=== PATIENT | male | born 1940 | race Caucasian/White ===

== ENCOUNTER 2017-04-19 10:15 | Outpatient (CLI) | payer OTHER ==
[~2017-04-19] VITALS: Ht 170.2 cm; Wt 71.4 kg
[2017-04-19 10:28] VITALS: BP 134/65; PULSE 95; RESP 18; Ht 170.2 cm; Wt 71.4 kg
[2017-04-19] MEDS ORDERED: IPRA12.93 INHALATION (10:38)
[2017-04-19] MEDS ORDERED: ADV10050 INHALATION (10:38)
[2017-04-19] MEDS ORDERED: ALBU18HF INHALATION (10:38)
[2017-04-19] MEDS ORDERED: TAMS-14 PO (10:38)
[2017-04-19] MEDS ORDERED: LOSA50TA6 PO (10:38)
[2017-04-19] MEDS ORDERED: GLEC1TAB PO (10:38)
--- NOTE | 2017-04-19 14:04 | CONS ---
DATE OF ADMISSION: 04/19/2017 DATE OF CONSULTATION: 04/19/2017 [facility] INITIAL OUTPATIENT CONSULTATION NOTE PLACE OF SERVICE: [facility] at [facility] REFERRING PHYSICIAN: Jessica Tenorio MD Dear Dr. Tenorio: Thank you very much for the opportunity to participate in the care of this very pleasant gentleman a nd his wonderful family. REASON FOR CONSULTATION: Hepatocellular carcinoma. HISTORY OF PRESENT ILLNESS: The patient is a very pleasant and otherwise fairly healthy 76-year-old gentleman with a few comorbidities including BMI 24.6 who was recently diagnosed with hepatitis C v irus infection. As part of his workup, he underwent an ultrasound of the abdomen on 01/27/2017 at [facility] read by Dr. Gabbi Royal, which demonstrated the presence of a 5.5 cm mass within the left hepatic lobe, highly suspicious for hepatocellular carcinoma in the setting of hepa titis and cirrhosis. The liver was thought to be nodular suggestive of sequelae of cirrhosis. The followup image was an MRI of the abdomen with and without contrast on 02/20/2017 at [facility] and read by Dr. Néstor Mcgraw that demonstrated a large 7 cm mass occupying the right lobe of the liver consistent with hepatocellular carcinoma LIRADS category 5B. No radiologic evidence of definite macrovascular involvement or extrahepatic disease in the visualized portion of the abdomen . He had the additional procedure of CT-guided liver biopsy on 03/05/2017 at [facility], [facility], done by Dr. Lewis Giron where a CT -guided biopsy was performed of the right hepatic mass which on final pathology is found to be a wel l differentiated hepatocellular carcinoma in the setting of cirrhosis with marked bile duct prolifer ation and focal ectasia. Note that there is no mention of grade of fibrosis. In addition to above, the patient also underwent a PET CT scan on 03/22/2017 done at [facility] of [facility], read by Dr. Callum Giron of which demonstrated a subtle ill-defined isometabolic hypodensity within the liver compatible with known malignancy. The area showed minimal or no FDG avidity. There was left lung base focal consolidation versus atelectasis and short-term followup was suggested. A right renal cyst was noted. Enlarged prostate was also noted and no abno rmal tracer uptake elsewhere to suggest metastatic disease. The patient's laboratory values up to now have been significant for rising alpha fetoprotein levels which were read at 8.2 on 02/13/2017 with repeat values done on 03/25/2017 at 12.1. Note that his a lbumin is 3.9, his platelet count is 218, total bilirubin was 1.5, AST 203, ALT 186, alkaline phosph atase 236. INR 1.0. Hepatitis C genotype 4 on 02/13/2017. He was started on Nexavar for 10 days an d he has had a rather moderate to severe complication of skin necrosis on his feet as well as on his scrotum. The patient himself reported no major symptoms of abdominal pain and no issues with nausea or vomiti ng, no difficulties with diarrhea or constipation or bleeding per rectum or vomiting blood in the pa st. He has had no known difficulties with his liver or biliary system in the past. The diagnosis o f liver issues were all new to him and his family starting summer. The patient reports appr oximately a 10 to 20 pound weight loss over the last few weeks. He did not tolerate sorafenib very well with the above-mentioned complications. No other major symptoms during my visit. COMORBIDITIES: 1. BMI 24.6. 2. Hepatitis C virus infection, genotype 4 diagnosed 12/2016 with no known treatment specific for i t. 3. Hepatocellular carcinoma diagnosed 01/2017 with above-mentioned ultrasound and confirmed with fu rther images and biopsy as outlined above. 4. Hypertension. 5. Asthma. 6. Chronic obstructive pulmonary disease. 7. Syphilis 01/01/2017. SOCIAL HISTORY: The patient lives with his family. He has 5 children. Currently retired. No uche r issues with smoking, drinking, or intravenous drug use. FAMILY HISTORY: One son has osteosarcoma, there is also diabetes mellitus in the family and hyperte nsion. No other mention of major medical, surgical or oncologic problems in the family. REVIEW OF SYSTEMS: Other than the above-mentioned, there are no other major pertinent positives or pertinent negatives in a complete 14-point review of systems. The patient has minor bloating report ed. PHYSICAL EXAMINATION: GENERAL: The patient appears to be a very pleasant -Scottish gentleman of non- desce nt, appearing stated age or perhaps younger than stated age, sitting in a chair comfortably and in n o acute distress. His BMI is 24.6. VITAL SIGNS: Normal with the exception of slightly high blood pressure 134/65. HEENT: Head is normocephalic and atraumatic. His extraocular muscles and hearing are grossly intac t bilaterally and symmetrically. His sclerae are nonicteric. His oral cavity is clear, and his ora l mucosa appear to be pink and moist. His dentition is fair. NECK: Supple. There is no lymphadenopathy or JVD. CHEST: Rises symmetrically with each breath, and he is breathing comfortably, without any gross edvin dence for wheezing, rales or rhonchi. His carotid pulses are palpable bilaterally and symmetrically in his neck. HEART: Radial pulses palpable on his right wrist. Lower extremities contain no pitting edema aroun d the ankles bilaterally and symmetrically. ABDOMEN: Soft, slightly protuberant but nondistended and nontender. There is a small umbilical her mary jane which is easily reduced and nontender to palpation. There is no evidence of organomegaly, caput medusae, engorged subcutaneous veins, or ascites. There are no peritoneal signs or guarding. EXTREMITIES: Skin appears to be pink and feels warm to touch. Skin overlying the dorsum of the lef t foot contains an area of necrosis and the patient is wearing sandals and walks very slowly due to moderate pain in the feet. NEUROLOGIC: He is awake, alert, and follows commands appropriately. LABORATORY VALUES: As above. IMAGING: As above. Note that I personally reviewed all the available images and I agree in general with their overall reported findings with the exception of the following: The mass appears to be o ccupying a space that involves segment 8, 4A, 4B and part of segment 5. It is directly overlying the bifurcation of the portal structures and there is no evidence of obviou s thrombus within portal vein on either side. The main portal vein appears to be open. The appeara nce of the contour of the liver do not suggest severe cirrhosis. There is no evidence of splenomega ly or ascites or varices. IMPRESSION AND PLAN: A very pleasant but unfortunate 76-year-old gentleman with a few comorbidities , presenting with newly diagnosed hepatitis C in the summer of 2017 and a diagnosis of 7 cm mass wit hin the central portion of the liver occupying portions of segments 8, 4A, 4B and 5. This lesion is borderline resectable. The patient's liver appearance as well as his images suggest a candidate fo r surgical exploration. The biopsy confirms a diagnosis of hepatocellular carcinoma and the images have characteristic findings for hepatocellular carcinoma. I do not believe that this is metastatic disease from elsewhere and the other differentials include cholangiocarcinoma, as well as other typ es of primary liver malignancy. The options of treatment are multiple. I spent quite a bit of time with the patient and his daughter, who is a pharmacist, and reviewed all our available information in detail with the help of printed diagrams as well as a model of liver reviewing the findings up to now, and the different strategies to treat this problem. Surgical resection with R0 margins (negat sunita margins), would like to give the patient the most benefit. However, as I mentioned, I believe t hat the lesion is borderline resectable, given its size and location with concern for involvement of the bifurcation reducing our chances of performing an R0 resection. Patient also currently is not eligible for a liver transplant within [facility] criteria, although he can be considered within the UCS F criteria and therefore, a local therapy to the liver, to reduce the size might make him more eligi ble for a transplant. Incidentally, this would also make him more eligible for a surgical resection . The pathology report mentions cirrhosis as well as the ultrasound report. However, the patient d oes not have the type of images to support severe cirrhosis and certainly his laboratory values are permissible and therefore, surgical exploration can be considered. I reviewed local therapies to th e liver in the form of transarterial chemoembolization, radioembolization, and also heat therapy suc h as radiofrequency ablation or microwave ablation and reviewed the risks, benefits of each in detai l. We also reviewed the systemic chemotherapy with sorafenib and the risks and benefits of this christopher atment. Patient already is showing moderate to severe complications from sorafenib and I do not bel ieve that he will be able to tolerate any further therapies. Furthermore, the known benefits of sor afenib are somewhat limited with average of 8 weeks of survival advantage at the cost of weeks to mo nths of severe complications as the patient is experiencing and for this reason, I do not recommend further systemic chemotherapy in this situation. I spent quite a bit of time with the patient and family reviewing all of the above and answered all their questions. The patient and his daughter appeared to understand and agreed with the following plans. With above assessments, I have recommended the followin. Multidisciplinary Tumor Board presentation. 2. Request authorization for both surgical intervention as well as local intervention with transart erial chemoembolization with the decision to be made after expedited multidisciplinary tumor board p resentation above in the next few weeks. 3. It would be certainly reasonable to explore the patient laparoscopically with the plan of doing intraoperative ultrasound of the liver and if the patient appears to be a resectable candidate to co ntinue with either a right trisegmentectomy versus a central hepatectomy versus Aalp's procedure. 4. Alternatively, if the recommendation of the tumor board is to proceed with local therapy or if t he intraoperative findings suggested borderline resectable then transarterial chemoembolization vers us radioembolization could be attempted in an attempt to make the patient a better surgical candidat e. 2. Transplant evaluation. 3. Possible need for consideration for combination therapy. 4. Follow up with us in early May for making the finalized plans while we arrange for all the cinda aguilera. Thank you again for allowing us to participate in the care of this very pleasant gentleman and his w onderful family. If there are any questions, please feel free to contact me at [phone]. NATURE OF PRESENTING PROBLEM: High risk. COMPLEX OF DECISION MAKING: High complexity. Dictated By: EMIR ACEVEDO/NICOLASA Conf#: [id number] DID#: [id number] CC: Toi Wynne; Yudith Oliveira; Jessica Tenorio;*EndCC*
== END 2017-04-19 17:00 | disposition home or self-care (01) ==
LOC: HPC 10:15
PROVIDERS: ATTEND Transplant Surgery
DX: C22.0 Liver cell carcinoma (principal); K74.60 Unspecified cirrhosis of liver; B19.20 Unspecified viral hepatitis C without hepatic coma; I10 Essential (primary) hypertension; J44.9 Chronic obstructive pulmonary disease, unspecified; Z86.19 Personal history of other infectious and parasitic diseases; Z83.3 Family history of diabetes mellitus; Z82.49 Family history of ischemic heart disease and other diseases of the circulatory system
CPT/HCPCS: G0463

== ENCOUNTER 2017-05-19 15:44 | Outpatient (CLI) | END 2017-05-19 17:00 | disposition home or self-care (01) ==

== ENCOUNTER → 2017-05-21 | Outpatient (CLI) | END | disposition home or self-care (01) ==

== ENCOUNTER 2017-05-31 11:00 | Outpatient (CLI) | END 2017-05-31 16:43 | disposition home or self-care (01) ==

== ENCOUNTER 2017-07-07 09:52 | Outpatient (CLI) | END 2017-07-07 15:42 | disposition home or self-care (01) ==

== ENCOUNTER 2017-09-10 21:57 | Observation (INO) | END 2017-09-12 12:30 | disposition home or self-care (01) ==

== ENCOUNTER 2017-10-08 22:33 | Inpatient (IN) | END 2017-10-14 17:06 | disposition home health service (06) | DRG 435 ==

== ENCOUNTER 2017-10-19 14:14 | Outpatient (CLI) | END 2017-10-19 16:32 | disposition home or self-care (01) ==

== ENCOUNTER 2017-10-22 13:58 | Outpatient (CLI) | END 2017-10-22 16:05 | disposition home or self-care (01) ==

== ENCOUNTER 2017-10-22 18:08 | Inpatient (IN) | END 2017-10-26 20:05 | disposition home or self-care (01) | DRG 435 ==

== ENCOUNTER 2017-11-01 14:29 | Outpatient (CLI) | END 2017-11-01 16:44 | disposition home or self-care (01) ==

== ENCOUNTER 2017-11-10 13:48 | Observation (INO) | END 2017-11-12 17:05 | disposition home or self-care (01) ==

== ENCOUNTER 2017-12-04 14:18 | Emergency (ER) | END 2017-12-04 18:10 | disposition home or self-care (01) ==

== ENCOUNTER → 2017-12-09 | Outpatient (CLI) | END | disposition home or self-care (01) ==